=== PATIENT | female | born 2000 | race Caucasian/White ===

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

== ENCOUNTER 2019-02-06 11:37 | Emergency (ER) | payer OTHER ==
[2019-02-06 12:39] VITALS: BP 114/81
--- NOTE | 2019-02-06 13:22 | UC ---
Complaint Female HPI - HPI Summary HPI Summary: 18-year-old college female who states she thinks she has a vaginal yeast infection with whitish discharge and vaginal itching. She has not been on any antibiotics recently. She is sexually active with one partner who is only sexually active with her. - History Of Current Complaint Chief Complaint: UCGU Stated Complaint: PERSONAL Time Seen by Provider: 02/06/19 12:47 Hx Obtained From: Patient Hx Last Menstrual Period: 01/16/19 ?: No Onset/Duration: Gradual Onset Timing: Constant Severity Initially: Mild Severity Currently: Mild Pain Intensity: 0 Aggravating Factor(s): Nothing Alleviating Factor(s): Nothing Associated Signs And Symptoms: Positive: Vaginal Discharge - Whitish yeastlike discharge. - Allergies/Home Medications Allergies/Adverse Reactions: Allergies Allergy/AdvReac Type Severity Reaction Status Date / Time No Known Allergies Allergy Verified 02/06/19 12:39 Home Medications: Home Medications Norethindrone-E.estradiol-Iron [Junel Fe 05/18 1-20 mg-Mcg] 1 tab PO DAILY [History Confirmed 02/06/19] PMH/Surg Hx/FS Hx/Imm Hx Previously Healthy: Yes - Surgical History Surgical History: Yes Surgery Procedure, Year, and Place: Scoliosis - Family History Known Family History: Positive: None - Pt denies FMHX - Social History Occupation: Student Lives: Dormitory/Roommates Alcohol Use: None Substance Use Type: None Smoking Status (MU): Never Smoked Tobacco - Immunization History Vaccination Up to Date: Yes Review of Systems All Other Systems Reviewed And Are Negative: Yes Genitourinary: Positive: Dysuria, Vaginal/Penile Itching, Vaginal/Penile Discharge - Vaginal itching with whitish yeast like discharge. Patient has rare burning with urination. Is Patient Immunocompromised?: No Physical Exam Triage Information Reviewed: Yes Appearance: Well-Appearing, No Pain Distress, Well-Nourished Vital Signs: Initial Vital Signs Temp 98.3 F 02/06/19 12:34 Pulse 110 02/06/19 12:34 Resp 16 02/06/19 12:34 BP 114/81 02/06/19 12:34 Pulse Ox 99 02/06/19 12:34 Vital Signs Reviewed: Yes Eyes: Positive: Conjunctiva Clear ENT: Positive: Hearing grossly normal, Pharynx normal, TMs normal, Uvula midline Neck: Positive: Supple, Nontender, No Lymphadenopathy Respiratory: Positive: Lungs clear, Normal breath sounds, No respiratory distress, No accessory muscle use Cardiovascular: Positive: RRR, No Murmur, Pulses Normal, Brisk Capillary Refill Abdomen Description: Positive: Nontender, No Organomegaly, Soft. Negative: CVA Tenderness (R), CVA Tenderness (L), Hepatomegaly, Splenomegaly Bowel Sounds: Positive: Present Musculoskeletal Exam: Normal Neurological Exam: Normal Psychological Exam: Normal Skin Exam: Normal Complaint Female Dx - Course Course Of Treatment: Patient is comfortable here. The urine was negative for leukocytes however it was positive for leukocyte Estrace therefore weakness on that for urine culture. I am going to treat her for a vaginal yeast infection with Diflucan 1 tablet now and repeat in 5-7 days. She is to follow-up at the [facility] or the [facility] if no improvement. - Differential Dx/Diagnosis Provider Diagnosis: Yeast infection Discharge ED - Sign-Out/Discharge Documenting (check all that apply): Patient Departure All imaging exams completed and their final reports reviewed: No Studies - Discharge Plan Condition: Good Disposition: HOME Prescriptions: Fluconazole 150 MG TAB* [Diflucan 150 MG TAB*] 150 mg PO UC ONCE 1 Days #1 tablet Patient Education Materials: Yeast Infection (ED) Referrals: No Primary Care Phys,NOPCP [Primary Care Provider] - ALEK ADDISON [[employer], APPLICATION, OTHER] - Additional Instructions: Take the Diflucan today and then may repeat in 1 week from now if you have continued symptoms. Follow up at the [facility] or the [facility] if any further concerns or if no improvement in symptoms. We will call you with the urine culture results if they are positive for urinary tract infection. - Billing Disposition and Condition Condition: GOOD Disposition: Home
--- NOTE | 2019-02-08 07:17 | UC ---
- Progress Note Progress Note: Urine culture from February 06, 2019 comes back as positive for Escherichia coli 10-25,000. From the note on that date patient had a whitish vaginal discharge is being treated with Diflucan. Nursing to call patient to let them know of the results and that I have called called in a prescription for Keflex for UT I Patient should get reevaluated if worse or any other questions or concerns. Course/Dx - Diagnoses Provider Diagnoses: Yeast infection Discharge ED - Sign-Out/Discharge Documenting (check all that apply): Patient Departure All imaging exams completed and their final reports reviewed: No Studies - Discharge Plan Condition: Good Disposition: HOME Prescriptions: Cephalexin CAP* [Keflex CAP*] 500 mg PO TID #15 cap Fluconazole 150 MG TAB* [Diflucan 150 MG TAB*] 150 mg PO UC ONCE 1 Days #1 tablet Patient Education Materials: Yeast Infection (ED) Referrals: No Primary Care Phys,NOPCP [Primary Care Provider] - ALEK ADDISON [[employer], APPLICATION, OTHER] - Additional Instructions: Take the Diflucan today and then may repeat in 1 week from now if you have continued symptoms. Follow up at the [facility] or the [facility] for reproductive health if any further concerns or if no improvement in symptoms. We will call you with the urine culture results if they are positive for urinary tract infection. - Billing Disposition and Condition Condition: GOOD Disposition: Home
--- NOTE | 2019-02-09 07:07 | UC ---
- Progress Note Progress Note: + E. Coli Rx cephalexin sensitive no change ljj Course/Dx - Diagnoses Provider Diagnoses: Yeast infection Discharge ED - Sign-Out/Discharge Documenting (check all that apply): Post-Discharge Follow Up All imaging exams completed and their final reports reviewed: No Studies - Discharge Plan Condition: Good Disposition: HOME Prescriptions: Cephalexin CAP* [Keflex CAP*] 500 mg PO TID #15 cap Fluconazole 150 MG TAB* [Diflucan 150 MG TAB*] 150 mg PO UC ONCE 1 Days #1 tablet Patient Education Materials: Yeast Infection (ED) Referrals: No Primary Care Phys,NOPCP [Primary Care Provider] - ALEK ADDISON [[employer], APPLICATION, OTHER] - Additional Instructions: Take the Diflucan today and then may repeat in 1 week from now if you have continued symptoms. Follow up at the [facility] or the [facility] for reproductive health if any further concerns or if no improvement in symptoms. We will call you with the urine culture results if they are positive for urinary tract infection. - Billing Disposition and Condition Condition: GOOD Disposition: Home
== END 2019-02-06 13:32 | disposition home or self-care (01) ==
LOC: UCCORT 11:37
DX: B37.3 Candidiasis of vulva and vagina (principal); N39.0 Urinary tract infection, site not specified
CPT/HCPCS: 81003; 84702; 87077; 87086; 87186; 99212; G0463